=== PATIENT | male | born 1970 | race American Indian/Alaskan Native ===

== ENCOUNTER 2016-04-10 18:07 | Emergency (ER) | payer OTHER ==
[2016-04-10 19:14] VITALS: BP 127/81
[2016-04-10 20:19] LABS: Basophils % (Auto) 0.3 % (0.0-1.8); Eosinophils % (Auto) 0.8 % (0.0-4.3); Hematocrit 40.5 % (35.5-45.6); Hemoglobin 13.5 gm/dl (11.8-15.2); Mean Corpuscular HGB Conc 33 % (32-34); Mean Corpuscular Hemoglobin 29 pg (28-32); Mean Corpuscular Volume 86 fl (84-94); Platelet Count 176 K/mm3 (140-440); Red Blood Count 4.73 M/mm3 (3.65-5.03); Red Cell Distribution Width 13.2 % (13.2-15.2); White Blood Count 5.8 K/mm3 (4.5-11.0)
[2016-04-10 20:42] LABS: Alanine Aminotransferase 23 units/L (7-56); Albumin 4.8 g/dL (3.9-5); Albumin/Globulin Ratio 1.5 %; Alkaline Phosphatase 83 units/L (35-129); Anion Gap 18 mmol/L; BUN/Creatinine Ratio 16.25; Bilirubin,Total 0.4 mg/dL (0.1-1.2); Blood Urea Nitrogen 13 mg/dL (9-20); Calcium 8.9 mg/dL (8.4-10.2); Carbon Dioxide 24 mmol/L (22-30); Chloride 99.7 mmol/L (98-107); Glucose 122 mg/dL (75-100); Lipase 15 units/L (13-60); Potassium 4.2 mmol/L (3.6-5.0); Sodium 137 mmol/L (137-145); Total Protein 7.9 g/dL (6.3-8.2)
[2016-04-10 20:44] LABS: Bilirubin,Urine NEG (Negative); Blood,Urine NEG (Negative); Ketones,Urine NEG (Negative); Leukocyte Esterase,Urine NEG (Negative); Mucus,Urine FEW /HPF; Nitrite,Urine NEG (Negative); Urobilinogen,Urine < 2.0 mg/dL (<2.0)
--- NOTE | 2016-04-11 08:12 | ED Elopement Review ---
ED Pt Elopement review - Results review Lab results: Laboratory Tests 04/10/16 04/10/16 04/10/16 20:05 20:05 20:32 WBC 5.8 RBC 4.73 Hgb 13.5 Hct 40.5 MCV 86 MCH 29 MCHC 33 RDW 13.2 Plt Count 176 Lymph % (Auto) 18.6 Sunflower % (Auto) 9.4 H Eos % (Auto) 0.8 Baso % (Auto) 0.3 Lymph # 1.1 L Sunflower # 0.5 Eos # 0.0 Baso # 0.0 Seg Neutrophils % 70.9 H Seg Neutrophils # 4.1 Sodium 137 Potassium 4.2 Chloride 99.7 Carbon Dioxide 24 Anion Gap 18 BUN 13 Creatinine 0.8 Estimated GFR > 60 BUN/Creatinine Ratio 16.25 Glucose 122 H Calcium 8.9 Total Bilirubin 0.4 AST 17 ALT 23 Alkaline Phosphatase 83 Total Protein 7.9 Albumin 4.8 Albumin/Globulin Ratio 1.5 Lipase 15 Urine Color Yellow Urine Turbidity Clear Urine pH 5.0 Ur Specific [place] 1.021 Urine Protein 30 mg/dl Urine Glucose (UA) Neg Urine Ketones Neg Urine Blood Neg Urine Nitrite Neg Urine Bilirubin Neg Urine Urobilinogen < 2.0 Ur Leukocyte Esterase Neg Urine WBC (Auto) 3.0 Urine RBC (Auto) 5.0 U Epithel Cells (Auto) < 1.0 Urine Mucus Few - Call Back decision Pt Call Back Decision: No action required
== END 2016-04-11 02:31 | disposition left against medical advice (07) ==
LOC: ED 18:07
DX: R10.9 Unspecified abdominal pain (principal); R11.0 Nausea; Z53.21 Procedure and treatment not carried out due to patient leaving prior to being seen by health care provider
CPT/HCPCS: 36415; 80053; 81001; 83690; 85025